=== PATIENT | female | born 1945 | race Caucasian/White ===

== ENCOUNTER 2023-04-30 11:46 | Inpatient (IN) | payer OTHER, SELFPAY ==
[2023-04-30 10:49] VITALS: BP 143/75
[2023-04-30 11:14] VITALS: BMI 32.3
--- NOTE | 2023-04-30 11:14 | ED.GENMED ---
History of Present Illness
General
Chief Complaint: Breathing Problem
Source: patient
Exam Limitations: none
Time Seen by Provider: 04/30/23 10:54
Nursing documentation reviewed up to this point in time: agreed with
Travel History
Have you had any contact with someone who has COVID-19?: No
Do you have any symptoms of coronavirus? Fever > 100 degrees, chills, cough, shortness of breath, sore throat, loss of taste or smell, muscle aches, or headache?: No
History of Present Illness
History of Present Illness:
pt is a 78 y/o F with h/o HTN
coming from cardiology suite after abnormal stress echo where she had exertional dyspnea, ischemic ekg changes and runs of NSVT
pt feels sob with exertion but denies any chest pain currently
she has not had fever, chills, cough, leg swelling, syncope
pt was sent from the cards suite to be admitted for cath today.
these symptoms have been ongoign for a year.
Past History
Past History
ED Past Medical History: HTN
ED Past Surgical History: None
Social History
Tobacco: Non-smoker
Alcohol: None
Drug: None
Personal:
Living: with family
Review of Systems
Review of Systems
Allergies reviewed?: Yes
All Other Systems: Not applicable
Phy Exam
Physical Exam
Physical Exam:
GENERAL: Alert , in no apparent distress
EYE: pupils equal and reactive
NECK: Supple
ENT: o/p clr, mmm.
CARDIAC: Regular rate and rhythm .
LUNGS: Clear breath sounds bilaterally, no acute respiratory distress, no wheezes/rales/rhonchi
ABDOMEN: Soft, without focal tenderness, no r/g, no cvat, normal bowel sounds
NEUROLOGICAL: Alert and oriented, no focal neuro deficits
SKIN: Warm and dry, skin intact.
MUSCULOSKELETAL: No edema, well perfused. neg grant's sign
PSYCH: Normal and appropriate interaction.
Scores
Heart Failure Risk
Heart Failure Risk Score: Not Applicable
Course
Orders/Labs/Results
Orders:
Orders
04/30/23 11:06
Electrocardiogram (*1) Stat
Reason for Study: Other
Other Reason for Exam: chest pain
Cardiac Monitoring- Treatment ONCE
EKG- Treatment ONCE
Complete Blood Count/With Diff Urgent
Comprehensive Metabolic Panel Urgent
PTT Urgent
Prothrombin Time Urgent
04/30/23 11:15
Troponin I Urgent
04/30/23 11:17
CR Chest Portable - 1 View Urgent
Comment:
Reason For Exam: sob
Reason Study Needs to be Portable: Patient Unstable
Vital Signs
Initial and Last Documented VS:
Initial Vital Signs
Temp Pulse Resp BP Pulse Ox
97.6 F 111 16 143/75 94
04/30/23 10:49 04/30/23 10:49 04/30/23 10:49 04/30/23 10:49 04/30/23 10:49
Last Documented Vital Signs
Temp Pulse Resp BP Pulse Ox
97.6 F 111 16 143/75 94
04/30/23 10:49 04/30/23 10:49 04/30/23 10:49 04/30/23 10:49 04/30/23 10:49
MDM/Problems Addressed
Differential Diagnosis Includes:
angina, acs, cad,
MDM/Problems Addressed:
78 y/o F with h/o htn
sent by cards for admission for cardiac cath after failing stress echo this am
sh ehas exertional dyspnea for months but no ches tpain
she denies pain now
i reached out to dr. gutierrez who requested cxr and amdit to his service.
*Critical Care Note
Total Time (30-74mins, 75-104mins- exclusive of procedures): Not Applicable
ED Attending Note
-
Portions of this chart may have been created with voice recognition software.� Occasional wrong word or��sound alike� substitutions may have occurred due to the inherent limitations of voice recognition software.
Discharge Plan
Departure
Patient Disposition: Admit
Date of Disposition: 04/30/23
Time of Disposition: 11:11
Admit to: Telemetry
Admit to doctor: brenda
Presentation/result/management discussed w/ accepting MD/DO: brenda
Patient with high blood pressure during this ER visit?: No
Condition: Fair
Covid-19: Not Applicable
Discharge Problem:
Abnormal stress echo, BARNETT (dyspnea on exertion)
Interventions
Interventions:
*Risk Screen - Suicide Last Done: 04/30/23 10:49
*General Assessment Last Done: 04/30/23 10:49
*Neglect/Abuse Screening Last Done: 04/30/23 10:49
[2023-04-30 11:23] VITALS: BP 161/76
--- NOTE | 2023-04-30 11:27 | HPS.HSE ---
Family Physician
-
Family Physician: Dr. Maco Puga
Chief Complaint
-
Abnormal stress test
History of Present Illness
78-year-old female with hypertension who presented for an elective stress echocardiogram, which was markedly abnormal with 1.0-1.[address] depression in the inferior leads, limiting dyspnea with exertion (only exercised for 4 minutes), and evidence of
stress-induced ischemia in the mid anteroseptal and possibly basal to mid inferoseptal peter. Her oxygen saturation also declined to 86% with exertion. The patient states that she has been experiencing progressive limiting dyspnea on exertion over
the past few months with intermittent episodes of chest pressure. She denies palpitations, syncopal events, or lower extremity swelling.
Medical History
Past Medical History
Past Medical History: Reports HTN
Past Surgical History: Reports Orthopedic (Left hip replacement, remote foot surgery) and Other (Sinus surgery)
Social History
Tobacco: Former Smoker (Quit at age 38)
Alcohol: Occasional
Drug: None
Personal:
Living: Alone
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
Family History
Family History: Not pertinent
Allergies / Home Medications
Allergies reflects when Allergies were last updated in [employer].
Home Medications with original date entered in [employer]
Allergy/Medication List:
Allergy: Ibuprofen.
Home medication list:
-Aspirin 81 mg daily
-Hydrochlorothiazide 25 mg daily
-Calcium 500 mg daily
-Multivitamin daily
-B complex tablet daily
Review of Systems
-
History Source: Patient
A 12 point ROS was completed and negative except as noted: Yes
Respiratory: Reports Other (BARNETT)
Cardiac: Reports Chest Pain
Physical Exam
Vital Signs
Vital Signs
Temp Pulse Resp BP Pulse Ox
97.6 F 91 21 161/76 96
04/30/23 10:49 04/30/23 11:23 04/30/23 11:23 04/30/23 11:23 04/30/23 11:23
Physical Exam
General: No Apparent Distress and Comfortable
HEENT: NormoCephalic
Respiratory: Clear
Cardiac: S1/S2, Regular Rhythm and Murmur (soft 2/6 MILES)
Breast: Deferred by me
GI: Soft and Non Tender
Rectal: Deferred by Provider
Genito-urinary: Deferred by me
Musculoskeletal: No Clubbing, No Cyanosis and No Edema
Skin: Warm and Dry
Neuro: AO x 3
Psych: Calm
Laboratory Results
-
Labs drawn, pending.
Data Reviewed
-
Medical Tests (Nuc Med, Echo, EKG etc): Image Personally Visualized and interpreted (Stress echocardiogram 04/30/2023: EKG positive for ischemia (1.0-1.[address] depression). Brief run of NSVT 3-7 beats. Exercise-limiting BARNETT. New mid
anteroseptal and possible basal to mid inferolateral stress-induced ischemia. High risk study. )
Lab Data: Discussed with Physician (experimental display builder. ER attending.) and Other (Labs ordered, pending)
Old Records: Reviewed (PCP office note on 02/07/2023.)
Impression/Plan
-
IMPRESSION:
Abnormal stress echocardiogram; high risk study. stress echocardiogram, which was markedly abnormal with 1.0-1.[address] depression in the inferior leads, limiting dyspnea with exertion (only exercised for 4 minutes), and evidence of stress-induced
ischemia in the mid anteroseptal and possibly basal to mid inferoseptal peter. Her oxygen saturation also declined to 86% with exertion.
PLAN:
Abnormal stress echocardiogram: The patient's case was discussed with Interventional Cardiology; will undergo cardiac catheterization today.
-Will be admitted to cardiology service; library monitor.
-Patient has been given full-dose aspirin.
-Patient will undergo an echocardiogram this admission.
-Further recommendations based on cardiac catheterization findings.
Hypertension:
-Patient on HCTZ 25 mg daily as outpatient.
[2023-04-30 11:39] LABS: % Basophils 0.8 % (0-2); % Eosinophils 1.4 % (0-6); % Immature Granulocytes 0.3 % (0-0.5); % Lymphocytes 17.2 % (20.5-51.1); % Monocytes 8.9 % (1.7-9.3); % Neutrophils 71.4 % (42.2-75.2); Absolute Basophils 0.1 10^3/uL (0-0.2); Absolute Eosinophils 0.2 10^3/uL (0-0.7); Absolute Lymphocytes 1.8 10^3/uL (1.2-3.4); Absolute Monocytes 0.9 10^3/uL (0.1-0.6); Absolute Neutrophils 7.5 10^3/uL (1.4-6.5); Hematocrit 43.5 % (37.0-47.0); Hemoglobin 14.5 g/dL (12.0-16.0); Mean Corp Hgb Conc. 33.3 g/dL (33.0-37.0); Mean Corpuscular Hgb 30.5 pg (27.0-31.0); Mean Corpuscular Volume 91.6 fL (81.0-99.0); Mean Platelet Volume 10.2 fL (7.4-10.4); Nucleated Red Blood Cells % 0 %; Platelet Count 230 10^3/uL (130-400); Red Blood Cell Count 4.75 10^6/uL (4.20-5.40); Red Cell Dist. Width 12.7 % (11.5-14.5); White Blood Cell Count 10.5 10^3/uL (4.8-10.8)
[2023-04-30 11:42] LABS: INR 0.96
[2023-04-30 11:44] LABS: ALT (SGPT) 19 U/L (0-35); AST (SGOT) 30 U/L (14-36); Albumin 4.1 g/dl (3.5-5.0); Alkaline Phosphatase 112 U/L (38-126); Blood Urea Nitrogen 22 mg/dl (7-17); Calcium 9.4 mg/dl (8.4-10.2); Carbon Dioxide 30 mmol/L (22-30); Chloride 104 mmol/L (98-107); Estimated Creatinine Clearance 53 ml/min; Glucose 116 mg/dl (70-99); Potassium 4.1 mmol/L (3.5-5.1); Sodium 138 mmol/L (135-145); Total Bilirubin 0.7 mg/dl (0.2-1.3); Total Protein 7.9 g/dl (6.3-8.2); eGFR > 60.00
[2023-04-30 11:55] LABS: Troponin I < 0.012 ng/ml
[2023-04-30 12:29] LABS: HDL Cholesterol 61 mg/dl; LDL Cholesterol, Calculated 77 mg/dl; Total Cholesterol 174 mg/dl (50-199); Triglyceride 183 mg/dl (10-149); Very Low Density Lipoprotein 36 mg/dl (0-30)
[2023-04-30 12:49] VITALS: BP 127/65
[2023-04-30] MEDS: NSS 1000 IV (14:25)
--- NOTE | 2023-04-30 15:01 | ITS.CL.CATH ---
Fundraising Sale Representative - Catheterization
Cardiac Catheterization
Procedure Report:
CARDIAC CATHETERIZATION REPORT
Date of Procedure: 04/30/2023
Referring: Checo Miranda MD
Indication: Worsening exertional dyspnea with high risk stress echo
HEMODYNAMIC DATA
AO: 155/73
LV: 155/15
LEFT VENTRICULOGRAPHY: Normal left ventricular wall motion with EF 64%
CORONARY ANGIOGRAPHY
Dominance: Right
Left Main: Normal
LAD: Normal
Circumflex: Normal
RCA: Normal dominant vessel
Closure Device: None-the procedure was performed via the right radial artery. The Daniel's test was normal prior to the procedure.
Radiation (mGy): 400
DAP (cm2.Gy): 32.9
Fluoroscopy time: 4.6 minutes
CONCLUSIONS
1: Systemic hypertension
2: Normal left ventricular function with EF 64%
3. Normal coronary arteries
4. There is a mild abnormality on her ER single view chest x-ray. We will ask for a PA and lateral chest x-ray prior to discharge. If this is abnormal she will need noncontrast chest CTA. Consider PFTs given her significant BARNETT. We will also
ask for a echocardiogram to be done prior to her visit in the office with Korina Garnica
Copy to: Checo Miranda MD, Maco Puga MD
Benjamin Bravo MD, [facility]
--- NOTE | 2023-05-15 10:37 | W.DS.TRANS ---
DC Summary - Scientific Informatics Project Leader
-
Discharge Instructions:
Discharge Diagnosis/Procedures Cardiac cath
Diet Low Sodium
Driving Restrictions No driving for 24 hours
Instructions: Heart Healthy Diet
Cardiac Catheterization (DC)
Wound Care for Arterial Puncture (DC)
Stand-Alone Forms: DC Instructions- Cath/EP Lab
Changes to Home Medications: No
Discharge Medications:
DC Medications w/original date entered in [employer]
aspirin 81 mg tablet,delayed release 81 mg PO DAILY 04/30/23
hydrochlorothiazide 25 mg tablet 25 mg PO DAILY 04/30/23
Home Medication Changes
Pending Results: No
== END 2023-04-30 16:31 | disposition home or self-care (01) | DRG 287 ==
LOC: CATH-IN 11:46
PROVIDERS: Internal Medicine Cardiovascular Disease; Physician Assistant; ADMITTING PHYSICIAN Internal Medicine; EMERGENCY PHYSICIAN Emergency Medicine
PROC: 4A023N7 Measurement of Cardiac Sampling and Pressure, Left Heart, Percutaneous Approach (ICD-10-PCS; 2023-04-30)
PROC: B2151ZZ Fluoroscopy of Left Heart using Low Osmolar Contrast (ICD-10-PCS; 2023-04-30)
PROC: B2111ZZ Fluoroscopy of Multiple Coronary Arteries using Low Osmolar Contrast (ICD-10-PCS; 2023-04-30)
DX: R94.39 Abnormal result of other cardiovascular function study (principal); I47.20 Ventricular tachycardia, unspecified; I10 Essential (primary) hypertension; Z87.891 Personal history of nicotine dependence; R06.09 Other forms of dyspnea
CPT/HCPCS: 93017; 71045; 71046; 80053; 80061; 84484; 85025; 85610; 85730; 93005; 93350; 93458; 99285; C1894; Q9957; Q9967

== ENCOUNTER → 2023-05-11 11:05 | Outpatient (REF) | payer OTHER, SELFPAY | LOC: RCS 11:05 | PROVIDERS: ATTENDING PHYSICIAN Nurse Practitioner; FAMILY PHYSICIAN Internal Medicine | DX: R06.09 Other forms of dyspnea (principal) | CPT/HCPCS: 93306 ==

== ENCOUNTER → 2023-05-24 12:27 | Outpatient (REF) | payer OTHER, SELFPAY | LOC: HWRAD 12:27 | PROVIDERS: ATTENDING PHYSICIAN Internal Medicine Critical Care Medicine; FAMILY PHYSICIAN Internal Medicine | DX: R06.02 Shortness of breath (principal); R93.89 Abnormal findings on diagnostic imaging of other specified body structures | CPT/HCPCS: 71275; Q9967 ==

== ENCOUNTER 2023-05-24 18:11 | Inpatient (IN) | payer OTHER, SELFPAY ==
[2023-05-24 15:18] VITALS: BP 152/79
[2023-05-24 16:37] LABS: % Basophils 0.9 % (0-2); % Eosinophils 2.3 % (0-6); % Immature Granulocytes 0.3 % (0-0.5); % Lymphocytes 20.5 % (20.5-51.1); % Monocytes 9.1 % (1.7-9.3); % Neutrophils 66.9 % (42.2-75.2); Absolute Basophils 0.1 10^3/uL (0-0.2); Absolute Eosinophils 0.3 10^3/uL (0-0.7); Absolute Lymphocytes 2.2 10^3/uL (1.2-3.4); Absolute Neutrophils 7.2 10^3/uL (1.4-6.5); Hematocrit 41.7 % (37.0-47.0); Mean Corp Hgb Conc. 33.6 g/dL (33.0-37.0); Mean Corpuscular Hgb 29.7 pg (27.0-31.0); Mean Corpuscular Volume 88.5 fL (81.0-99.0); Mean Platelet Volume 9.6 fL (7.4-10.4); Nucleated Red Blood Cells % 0 %; Platelet Count 241 10^3/uL (130-400); Red Blood Cell Count 4.71 10^6/uL (4.20-5.40); Red Cell Dist. Width 13.1 % (11.5-14.5); White Blood Cell Count 10.8 10^3/uL (4.8-10.8)
[2023-05-24 16:52] LABS: INR 1.03; PT 13.3 Sec (11.4-14.6)
[2023-05-24 16:53] LABS: ALT (SGPT) 15 U/L (0-35); AST (SGOT) 31 U/L (14-36); Albumin 3.7 g/dl (3.5-5.0); Alkaline Phosphatase 90 U/L (38-126); Blood Urea Nitrogen 17 mg/dl (7-17); Calcium 9.3 mg/dl (8.4-10.2); Carbon Dioxide 29 mmol/L (22-30); Chloride 97 mmol/L (98-107); Estimated Creatinine Clearance 68 ml/min; Glucose 102 mg/dl (70-99); Potassium 4.1 mmol/L (3.5-5.1); Sodium 134 mmol/L (135-145); Total Bilirubin 0.9 mg/dl (0.2-1.3); Total Protein 7.9 g/dl (6.3-8.2); eGFR > 60.00
[2023-05-24 16:53] LABS: APTT 25.3 Sec (23.4-35.0)
[2023-05-24 17:05] LABS: NT-proBNP 1330 pg/ml; Troponin I 0.024 ng/ml
[2023-05-24 17:35] VITALS: BP 143/86
[2023-05-24] MEDS: HEPARIN 25000 UNITS/250 ML IV (17:41)
[2023-05-24] MEDS: HEPARIN 5800 UNITS IV (17:43)
[2023-05-24 18:00] VITALS: BP 154/62
--- NOTE | 2023-05-24 18:00 | HPS.HSE ---
Family Physician
-
Family Physician: Maco Puga
Chief Complaint
-
Sent in by her horse racetrack manager after abnormal CT scan showing pulmonary embolus
History of Present Illness
Patient is an 78-year-old female who has been short of breath dating back to early January at that time she had taken a flight to [facility] to engage in a [employer] cruise after flying from [place] on a 9-hour flight she states she
may have been having some short of breath in the airport but was definitely more short of breath after arrival and trying to keep up with her tour group. Since that time she has been persistently short of breath and underwent a stress echo that was
markedly abnormal due to exercise intolerance and was actually admitted for cardiac catheterization in late April showing normal coronaries a 2D echocardiogram subsequently showed a 65% EF without significant wall motion abnormality or
valvulopathy. It was suggested that she follow-up with pulmonary to assess for possible pulmonary causes to her dyspnea and apparently underwent pulmonary function studies that were unremarkable but Dr. Mansfield on the pulmonary service ordered a
CT scan of the chest which shows a large pulmonary embolus in the right main pulmonary artery with some segmental branching on the right side also. There is no significant strain effect and she has remained hemodynamically stable throughout
evaluation in the ED she will be admitted for heparinization she is not a thrombolytic candidate as she remains hemodynamically stable she is only on 2 L nasal flow oxygen but tested without desaturation on room air earlier. Only prior history is
that of hypertension and she is also on daily aspirin therapy. 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 Describing her exercise intolerance or more
likely intolerance is when asked if she can walk a city block she states she did have to stop 500 times. She cannot climb stairs. She cannot keep up with any people with leisure walking. She does not describe any chest pain or any inspiratory
pain.
Medical History
Past Medical History
Past Medical History: Reports HTN
Past Surgical History: Reports Orthopedic
Additional Past Surgical History:
Left hip replacement/bunionectomy right foot
Social History
Tobacco: Former Smoker
Alcohol: None
Drug: None
Personal:
Living: Alone
Employment: Retired
Family History
Family History: Other (No coagulopathy history in family members)
Allergies / Home Medications
Allergies reflects when Allergies were last updated in [employer].
Home Medications with original date entered in [employer]
Allergy/Medication List:
Allergies
Allergy/AdvReac Type Severity Reaction Status Date / Time
ibuprofen Allergy Shortness Verified 05/24/23 15:23
of Breath
Home Medications
aspirin 81 mg tablet,delayed release 81 mg PO DAILY 04/30/23
hydrochlorothiazide 25 mg tablet 25 mg PO DAILY 04/30/23
calcium carbonate 500 mg calcium (1,250 mg) tablet 500 mg PO DAILY 05/24/23
cholecalciferol (vitamin D3) 25 mcg (1,000 unit) tablet (Vitamin D3) 25 mcg PO DAILY 05/24/23
multivitamin 1 tab PO DAILY 05/24/23
Review of Systems
-
History Source: Patient and Family
Constitutional: Reports No Symptoms
EENT: Reports No Symptoms
Respiratory: Reports See HPI and Trouble Breathing
Abdomen/GI: Reports No Symptoms
: Reports No Symptoms
Skin: Reports No Symptoms
Neurological: Reports No Symptoms
Physical Exam
Vital Signs
Vital Signs
Pulse Resp BP Pulse Ox
84 18 152/79 93
05/24/23 15:18 05/24/23 15:18 05/24/23 15:18 05/24/23 15:18
Physical Exam
General: Well Developed
HEENT: NormoCephalic
Respiratory: Clear
Cardiac: S1/S2 and Regular Rhythm
GI: Soft, Non Tender and Non Distended
Neuro: Awake and AO x 3
Psych: Calm
Laboratory Results
-
05/24/23 16:
05/24/23 16:
Laboratory Results
PT 13.3 Sec (11.4-14.6) 05/24/23 16:
INR 1.03 05/24/23 16:
APTT 25.3 Sec (23.4-35.0) 05/24/23 16:
Total Bilirubin 0.9 mg/dl (0.2-1.3) 05/24/23 16:
AST 31 U/L (14-36) 05/24/23:
ALT 15 U/L (0-35) 05/24/23 16:
Alkaline Phosphatase 90 U/L (38-126) 05/24/23 16:
Troponin I 0.024 ng/ml 05/24/23 16:
Data Reviewed
-
Critical Care Time (in minutes): 56
CT Scan: Report Reviewed by me and Discussed with Physician
Lab Data: Labs Reviewed by me (CBC and chemistry is all within limits of acceptable range)
Impression/Plan
-
IMPRESSION:
Patient is an 78-year-old female who has been short of breath dating back to early January at that time she had taken a flight to [facility] to engage in a [employer] [place] cruise after flying from [place] on a 9-hour flight she states she
may have been having some short of breath in the airport but was definitely more short of breath after arrival and trying to keep up with her tour group. Since that time she has been persistently short of breath and underwent a stress echo that was
markedly abnormal due to exercise intolerance and was actually admitted for cardiac catheterization in late April showing normal coronaries a 2D echocardiogram subsequently showed a 65% EF without significant wall motion abnormality or
valvulopathy. It was suggested that she follow-up with pulmonary to assess for possible pulmonary causes to her dyspnea and apparently underwent pulmonary function studies that were unremarkable but Dr. Mansfield on the pulmonary service ordered a
CT scan of the chest which shows a large pulmonary embolus in the right main pulmonary artery with some segmental branching on the right side also. There is no significant strain effect and she has remained hemodynamically stable throughout
evaluation in the ED she will be admitted for heparinization she is not a thrombolytic candidate as she remains hemodynamically stable she is only on 2 L nasal flow oxygen but tested without desaturation on room air earlier. Only prior history is
that of hypertension and she is also on daily aspirin therapy. 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
Acute pulmonary emboli
-Involving the right main pulmonary artery with moderate thrombotic burden but without evidence right ventricular strain
-Hemodynamically stable on presentation and no indication for thrombolysis
-May have had instigating influence from a long-haul flight in early January has been short of breath since
-Management will be heparin drip with transition to DOAC in 24 to 48 hours
-Venous Doppler lower extremities negative for DVT
-Pulmonary consultation/has been followed by Dr. Arnold
Recent cardiac evaluation
-That included abnormal stress echo leading to left heart cath showing normal coronary arteries
-Recent 2D echocardiogram 2 weeks ago showing EF of 65% without wall motion abnormality nor valvulopathy
-Cath results did show some pulmonary hypertension at that time
Essential hypertension
-Continue management with hydrochlorothiazide stable on presentation
DVT prophylaxis with heparin drip
-Full CODE STATUS
[2023-05-24 19:46] LABS: Troponin I 0.026 ng/ml
[2023-05-24 19:47] VITALS: BP 123/83; BMI 31.2
--- NOTE | 2023-05-24 20:12 | ED.GENMED ---
History of Present Illness
General
Chief Complaint: Breathing Problem
Source: patient
Exam Limitations: none
Time Seen by Provider: 05/24/23 15:25
Nursing documentation reviewed up to this point in time: agreed with
Travel History
Have you had any contact with someone who has COVID-19?: No
Do you have any symptoms of coronavirus? Fever > 100 degrees, chills, cough, shortness of breath, sore throat, loss of taste or smell, muscle aches, or headache?: No
History of Present Illness
History of Present Illness:
78-year-old female with past medical history as documented presents to the emergency room from outpatient CT scan due to positive pulmonary embolism on CTA of the chest. Patient reports that she has been feeling increasing dyspnea over the past 4
to 6 months. She does not recall an abrupt onset or trigger but says it has been gradually worsening. She recently underwent extensive workup including cardiac catheterization with Dr. Bravo and echocardiogram which was nondiagnostic. She was
referred to pulmonology for PFTs and saw Dr. Arnold who ordered outpatient CTA to rule out PE; she had scan today which was positive for pulmonary embolism. She denies any chest pain. She denies any leg pain or swelling. She denies any recent
surgery or hospitalizations and no known history of cancer. She denies any history of DVT/PE. She denies any recent bleeding including nosebleeds, GI bleeding.
Past History
Past History
ED Past Medical History: HTN
ED Past Surgical History: None
Social History
Tobacco: Non-smoker
Alcohol: None
Drug: None
Personal:
Living: with family
Review of Systems
Review of Systems
All Other Systems: ROS reviewed and negative except as documented in HPI and ROS
Constitutional: Reports fatigue; Denies fever
Respiratory: Reports cough (Very mild) and trouble breathing
Cardiac: Denies chest pain, diaphoresis or palpitations
ABD/GI: Denies abdominal pain, nausea, vomiting or diarrhea
: Denies flank pain
Musculoskeletal: Denies edema, neck pain or back pain
Neurological: Denies dizzy, headache, weakness or numbness
Phy Exam
Physical Exam
Physical Exam:
General: Awake, alert, oriented x3; no acute distress
Head: Normocephalic, atraumatic
Eyes: Conjunctiva normal
Throat: Airway intact, handling secretions
Neck: Trachea midline, supple without meningismus
Lungs: Clear to auscultation bilaterally, no wheezing, rales, rhonchi
Heart: Regular rate and rhythm, no murmurs, gallops, or rubs
Neuro: Cranial nerves grossly intact, speech fluid
Skin: no rash
Extremities: No edema in extremities, equal pulses in all extremities
Scores
Heart Failure Risk
Heart Failure Risk Score: Not Applicable
Heart Score for Chest Pain Patients
STEMI patient?: Not applicable
Withdrawal Assessment of Alcohol
Withdrawal Assessment Completed?: Not applicable
Course
Orders/Labs/Results
Orders:
Orders
05/24/23 Dinner
Regular
At Your Request: Full Participation
Does patient need a safe tray?: No
05/24/23 15:26
Electrocardiogram (*1) Urgent
Reason for Study: Shortness of Breath
EKG- Treatment ONCE
05/24/23 16:06
US Periph Venous LOWER Ext Joaquim Urgent
Comment:
Reason For Exam: large PE--eval for DVT
05/24/23 16:27
PTT Urgent
Prothrombin Time Urgent
05/24/23 16:28
Complete Blood Count/With Diff Urgent
Comprehensive Metabolic Panel Urgent
NT-proBNP Urgent
Troponin I Urgent
05/24/23 17:04
Heparin 5,800 units IV NOW STA
Nursing to Place Non Medication Order As Directed
Physician Order: PTT 6 hours after initial start of Heparin infusion
Above order entered?: Yes
05/24/23 17:15
Heparin 80882 Units/250 ml 25,000 units in 250 ml IV PER PROTOCOL
Weight to be used for heparin protocol in kilograms (kg):: 72
Protocol:: DVT/PE
PTT Goal Range to be used:: PTT 73 to 111 seconds
Order type:: Initial
INITIAL Infusion Dose (UNITS/KG/hr) & then follow protocol:: 18 units/kg/hr
Infusion Dose in UNITS/hr & then follow protocol (UNITS/hr):: 1,300
INFUSION RATE in mL/hr & then follow protocol (mL/hr):: 13
For DVT/PE algorithm, re-bolus for low PTT?: Yes
PTT less than or equal to 64 seconds:: Re-bolus 80 units/kg (max 10,000units). Increase by 300 units/hr
(+ 3mL/hr)
PTT 64.1 to 72.9 seconds:: Re-bolus 40 units/kg (max 5,000 units). Increase by 100 units/hr
(+ 1mL/hr)
PTT 73 to 111 seconds:: Target Range. No change in rate.
PTT 111.1 to 130.9 seconds:: Decrease rate by 100 units/hr (- 1 mL/hr)
PTT 131 to 199.9 seconds:: HOLD for 1 hr. Then decrease by 200 units/hr (- 2mL/hr)
PTT greater than or equal to 200 seconds:: HOLD for 2 hrs & Notify Provider. Then decrease by 300 units/hr
(- 3mL/hr)
Lab follow-up:: Each change, PTT q6h until 2 consecutive are therapeutic. Then
PTT daily.
05/24/23 17:18
Heparin 5,800 units IV PRN PRN
05/24/23 17:19
Heparin 2,900 units IV PRN PRN
05/24/23 17:44
Heparin 5,000 units .ROUTE .STK-MED ONE
05/24/23 17:50
Admit/Transfer Patient As Directed
Co-Sign Provider:
Level of Care: Inpatient admission
Assign to:: Telemetry
Physician / Group: hosp
Diagnosis: Pulmonary embolus
Reason for Telemetry: Medication for Arrhythmia
Date to Stop Telemetry: 05/26/23
Time to Stop Telemetry: 11:00
Reason for Hospitalization: Pulmonary embolus
Expected length of stay greater than two midnights?: Yes
ELOS- Estimated Length of Stay in days: 3
I certify the patient meets the requirements for IP care: Yes
05/24/23 17:53
Code Status As Directed
Resuscitation Status: Full Code
Acetaminophen [Tylenol] 650 mg PO Q4HPRN PRN
Venous Foot Pumps As Directed
Location: Bilateral feet
O2 Therapy [RESP] Routine
Nasal Cannula Liter Flow: 2 LPM
Titrate/Wean O2 to maintain O2 sat greater than (%): 93
Pulse Ox/spot Check [RESP] Routine
Quantity: 1
05/24/23 17:54
Activity As Directed
Activity Level: Bedrest for limited time
Bedrest duration in hours then activity as indicated above:: 24
Vital Signs As Directed
Frequency: Per unit guidelines
DX Deep Vein Thrombosis Video Routine
05/24/23 17:59
PULMONARY CONSULT Routine
Consulting Provider: Brandon Arnold
Was physician already notified: Yes
05/24/23 19:10
Troponin I Q6H
05/25/23 00:00
Troponin I Q6H
05/25/23 06:00
Basic Metabolic Panel IN AM
Complete Blood Count/No Diff IN AM
Troponin I Q6H
05/25/23 08:00
Aspirin Low Dose EC [Aspir Low (Enteric Coated)] 81 mg PO DAILY
Calcium Carbonate [Oscal Jakob 500] 500 mg PO DAILY
Cholecalciferol (Vitamin D3) [VITAMIN D3 (cholecalciferol)] 25 mcg PO DAILY
Hydrochlorothiazide [Oretic] 25 mg PO DAILY
05/26/23 11:00
DC Protocol for Telemetry ONCE
Abnormal Lab Results
05/24/23
16:28
Absolute Neuts (auto) 7.2 H 10^3/uL
(1.4-6.5)
Absolute Monos (auto) 1.0 H 10^3/uL
(0.1-0.6)
Sodium 134 L mmol/L
(135-145)
Chloride 97 L mmol/L
(98-107)
Glucose 102 H mg/dl
(70-99)
05/24/23 16:28
05/24/23 16:28
Vital Signs
Initial and Last Documented VS:
Initial Vital Signs
Pulse Resp BP Pulse Ox
84 18 152/79 93
05/24/23 15:18 05/24/23 15:18 05/24/23 15:18 05/24/23 15:18
Last Documented Vital Signs
Temp Pulse Resp BP Pulse Ox
36.2 C 84 22 123/83 95
05/24/23 19:47 05/24/23 19:47 05/24/23 19:47 05/24/23 19:47 05/24/23 19:47
MDM/Problems Addressed
Differential Diagnosis Includes:
PE
MDM/Problems Addressed:
78-year-old female presents with worsening dyspnea over the past few months; had outpatient CTA which showed pulmonary embolism. No clear signs of heart strain on CTA and patient had recent echocardiogram on 05/11 which showed no RV dilation. She
has a low normal pulse ox 93% on room air, normal heart rate, normal blood pressure. Discussed with pulmonology, not a candidate for thrombolysis. Ordered bilateral duplex of the lower extremities, basic labs, EKG. Will start on heparin infusion
admit to the hospitalist service for continued management. Case discussed with hospitalist for admission.
*Radiology
Radiology exam reviewed: radiology read reviewed (Reviewed CTA done outpatient)
*Pulse Oximetry
Patient hypoxic: no
*EKG
Interpreted by ED Provider?: Yes
Heart Rate: 70
Rate: normal
Rhythm: sinus
Gans: normal axis
Interval: normal interval
QRS Pattern: normal QRS
Ischemia: other (Nonspecific T wave abnormalities)
*Critical Care Note
Total Time (30-74mins, 75-104mins- exclusive of procedures): Not Applicable
Data Reviewed
Source: patient and records
Patient Management
Discussion with other providers: Hospitalist (Discussed with hospitalist) and Audio Visual Facilities Engineer (Discussed with pulmonology)
Escalation/DeEscalation of care consider admission/obs:
Admission indicated
ED Attending Note
-
Portions of this chart may have been created with voice recognition software.� Occasional wrong word or��sound alike� substitutions may have occurred due to the inherent limitations of voice recognition software.
Discharge Plan
Departure
Patient Disposition: Admit
Date of Disposition: 05/24/23
Time of Disposition: 17:21
Admit to doctor: Adolfo
Presentation/result/management discussed w/ accepting MD/DO: Hospitalist
Discharge Problem:
Pulmonary embolism
Interventions
Interventions:
*Risk Screen - Suicide Last Done: 05/24/23 19:39
*General Assessment Last Done: 05/24/23 15:18
*Neglect/Abuse Screening Last Done: 05/24/23 19:39
ED- Fall Risk Assessment Last Done: 05/24/23 18:23
*ED COVID-19 Vaccine History Last Done: 05/24/23 15:18
*Nursing Disposition Last Done: 05/24/23 19:39
ED- Cardiac Assessment Last Done: 05/24/23 18:23
ED- Pulmonary Assessment Last Done: 05/24/23 18:23
Discharge Date and Time
Discharge Date/Time: 05/24/23 19:40
[2023-05-24 23:23] VITALS: BP 131/54
[2023-05-25 00:11] LABS: APTT 170.3 Sec (23.4-35.0)
[2023-05-25 01:24] LABS: Troponin I 0.025 ng/ml
[2023-05-25 03:07] VITALS: BP 107/48
[2023-05-25 07:05] VITALS: BP 113/61
--- NOTE | 2023-05-25 07:53 | W.PN.HOSP.TC ---
Today's Communication/Plan
-
As discussed with pulmonary service
Would continue heparin drip for at least another 24 hours and reassess in a.m.
Remains hemodynamically stable
May need home oxygen screen prior to discharge
Monitor CBC and platelets on heparin
Assessment / Plan
Assessment / Plan
Patient is an 78-year-old female who has been short of breath dating back to early January at that time she had taken a flight to [facility] to engage in a [employer] cruise after flying from [place] on a 9-hour flight she states she
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
markedly abnormal due to exercise intolerance and was actually admitted for cardiac catheterization in late April showing normal coronaries a 2D echocardiogram subsequently showed a 65% EF without significant wall motion abnormality or
valvulopathy.� It was suggested that she follow-up with pulmonary to assess for possible pulmonary causes to her dyspnea and apparently underwent pulmonary function studies that were unremarkable but Dr. Mansfield on the pulmonary service ordered a
CT scan of the chest which shows a large pulmonary embolus in the right main pulmonary artery with some segmental branching on the right side also.� There is no significant strain effect and she has remained hemodynamically stable throughout
evaluation in the ED she will be admitted for heparinization she is not a thrombolytic candidate as she remains hemodynamically stable she is only on 2 L nasal flow oxygen but tested without desaturation on room air earlier.� Only prior history is
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
Acute pulmonary emboli
-Involving the right main pulmonary artery with moderate thrombotic burden but without evidence right ventricular strain
-Hemodynamically stable on presentation and no indication for thrombolysis
-May have had instigating influence from a long-haul flight in early January has been short of breath since
-Management will be heparin drip with transition to DOAC in 24 to 48 hours
-Venous Doppler lower extremities negative for DVT
-Pulmonary consultation/has been followed by Dr. Arnold
-Presently on oxygen at 2 L May need home oxygen eval prior to proposed discharge would keep on at least another 24 hours of heparin drip
Recent cardiac evaluation
-That included abnormal stress echo leading to left heart cath showing normal coronary arteries
-Recent 2D echocardiogram 2 weeks ago showing EF of 65% without wall motion abnormality nor valvulopathy
-Cath results did show some pulmonary hypertension at that time
Essential hypertension
-Continue management with hydrochlorothiazide stable on presentation
DVT prophylaxis with heparin drip
-Full CODE STATUS
Anticipated Discharge: Within 24 hours
Subjective/Interval History
-
Date of Service: May 25, 2023
No on 2 L admitted for oxygen overnight denies any acute shortness of breath or chest pain overnight.
Objective Data
-
Labs:
Laboratory Results
05/24/23 05/25/23
23:23 06:59
WBC Pending
Hgb Pending
Hct Pending
Plt Count Pending
APTT 170.3 H* Pending
Sodium Pending
Potassium Pending
Chloride Pending
Carbon Dioxide Pending
BUN Pending
Creatinine Pending
Glucose Pending
Calcium Pending
Vital Signs:
Vital Signs
Temp Pulse Resp BP Pulse Ox
97.8 F 60 18 113/61 97
05/25/23 07:05 05/25/23 07:05 05/25/23 07:05 05/25/23 07:05 05/25/23 07:05
I&O
05/24/23 05/25/23 05/26/23
06:59 06:59 06:59
Intake Total 420 / 420
Balance 420 / 420
Review of Systems
-
History Source: Patient
Constitutional: Reports No Symptoms
EENT: Reports No Symptoms Reported
Respiratory: Reports Trouble Breathing
Physical Exam
-
General: Well Developed
HEENT: Normocephalic
Respiratory: Clear to Auscultation
Cardiac: Regular Rhythm
GI: Soft, Nontender and Nondistended
Musculoskeletal: No Clubbing, No Cyanosis and No Edema
Skin: IV Access / Catheter Site
Neuro: Awake
Psych: Calm
Data Reviewed
-
Total Time Spent with Patient (in minutes): 45
CT Scan: Report Reviewed by me (As reported/with evidence of bilateral PE more on the right side involving the right main pulmonary artery no RV strain)
Labs: Labs Reviewed by me (proBNP of 1330/rest of chemistries and CBC pending)
[2023-05-25 08:25] LABS: Hemoglobin 13.3 g/dL (12.0-16.0); Mean Corp Hgb Conc. 34.1 g/dL (33.0-37.0); Mean Corpuscular Hgb 30.9 pg (27.0-31.0); Mean Corpuscular Volume 90.5 fL (81.0-99.0); Mean Platelet Volume 10.2 fL (7.4-10.4); Platelet Count 236 10^3/uL (130-400); Red Blood Cell Count 4.31 10^6/uL (4.20-5.40); Red Cell Dist. Width 13.2 % (11.5-14.5); White Blood Cell Count 8.5 10^3/uL (4.8-10.8)
[2023-05-25 08:31] LABS: APTT 85.1 Sec (23.4-35.0)
[2023-05-25 08:47] LABS: Troponin I 0.015 ng/ml
[2023-05-25 09:03] LABS: Blood Urea Nitrogen 15 mg/dl (7-17); Calcium 8.9 mg/dl (8.4-10.2); Carbon Dioxide 30 mmol/L (22-30); Chloride 98 mmol/L (98-107); Estimated Creatinine Clearance 59 ml/min; Glucose 79 mg/dl (70-99); Potassium 3.8 mmol/L (3.5-5.1); Sodium 135 mmol/L (135-145); eGFR > 60.00
[2023-05-25] MEDS: VITAMIN D3 (cholecalciferol) 25 MCG PO (09:32)
[2023-05-25] MEDS: ORETIC 25 MG PO (09:32)
[2023-05-25] MEDS: OSCAL CAL 500 500 MG PO (09:32)
[2023-05-25] MEDS: ASPIR LOW (ENTERIC COATED) 81 MG PO (09:32)
[2023-05-25 11:00] VITALS: BP 113/58
--- NOTE | 2023-05-25 13:01 | CM ---
Reviewed the chart notes and spoke with the patient at the bedside. The patient resides alone in a two story [facility] with one step to enter. The only DME in home is a rolling walker if needed. The patient reports no VN or SNF in the past. The
patient confirmed her pharmacy of choice is the [facility] [address] [facility]. CM continues to be available to patient/family and is monitoring medical plan for needs at discharge.
Plan: Discharge to home when medically stable. No needs identified at this time.
[2023-05-25 15:05] VITALS: BP 146/57
--- NOTE | 2023-05-25 15:31 | CON.PUL ---
Consultation
Consultation Request
Date/Time Consultation Requested: 05/25
Date/Time Consultation Performed: 05/25
Reason for Consultation: Multiple PE
Medical History
-
History of Present Illness:
History obtained from the chart, outpatient records and obtained from the patient. Pleasant 78-year-old female whose history dates back to as long as 2 years ago with shortness of breath. She initially thought it was after her
as she was less active. She then had a variety of orthopedic issues. She then traveled to [facility] in January 2023, 11-hour flight. While in [facility] on her cruise she had significantly more shortness of breath. Upon arrival back to [place], she
had a cardiac workup, stress echocardiogram which was abnormal but cardiac workup was negative. She then saw pulmonary and CT chest was obtained which identified multiple pulmonary emboli prompting admission. Throughout this patient denies any
lightheadedness, dizziness, palpitations, syncope, leg pain or leg swelling or calf pain. Upon arrival to [facility],
She was found to have a pulse of 84, breathing 18, blood pressure 152/79, 93% saturation. She is started on heparin therapy
.
PMH: Hypertension, osteopenia, history of hematuria, mild asthma history, sinus surgery, left hip replacement, right foot surgery, peripheral eosinophilia
Past Medical History
Past Medical History: None (See above)
Past Surgical History: None (See above)
Social History
Tobacco: Former Smoker (Less than [id number] history quit )
Alcohol: Occasional
Drug: None
Personal:
Living: Alone
Employment: Not Employed
Family History
Family History: Other (Father at age 46 from malignant hypertension, cousin had ALS.)
Allergies / Home Medications
Allergies
Allergy/AdvReac Type Severity Reaction Status Date / Time
ibuprofen Allergy Shortness Verified 05/24/23 15:23
of Breath
Home Medications
Medication Instructions Recorded Confirmed Last Taken Type
aspirin 81 mg tablet,delayed 81 mg PO DAILY Blood Clot 04/30/23 05/24/23 05/24/23 History
release Prevention/Tx
hydrochlorothiazide 25 mg tablet 25 mg PO DAILY Fluid 04/30/23 05/24/23 05/24/23 History
Retention/Swelling
calcium carbonate 500 mg calcium 500 mg PO DAILY Supplement 05/24/23 05/24/23 05/24/23 History
(1,250 mg) tablet
cholecalciferol (vitamin D3) 25 25 mcg PO DAILY Supplement 05/24/23 05/24/23 05/24/23 History
mcg (1,000 unit) tablet (Vitamin
D3)
multivitamin 1 tab PO DAILY Supplement 05/24/23 05/24/23 05/24/23 History
Review of Systems
-
All other systems: Negative unless noted
Vitals / Labs / Diagnostic Testing
Vital Signs
Temp Pulse Resp BP Pulse Ox
97.7 F 68 20 146/57 98
05/25/23 15:05 05/25/23 15:05 05/25/23 15:05 05/25/23 15:05 05/25/23 15:05
Lab Data
05/25/23 06:59
05/25/23 06:59
Laboratory Results
05/24/23 05/24/23 05/25/23
16:27 23:23 06:59
PT 13.3
INR 1.03
APTT 25.3 170.3 H* 85.1 H
Diagnostic Testing:
Physical Exam
-
HEENT: Normocephalic and Anicteric
Cardiovascular: S1/S2, Regular Rhythm, Murmur (n), Rub (n), Peripheral Edema (n) and Calf Tenderness (n)
Respiratory: Wheeze (n), Rales (n), Rhonchi (n) and Non-Labored Respirations
GI: Soft, Non Distended and Non Tender
Neurology: Awake, Alert, Oriented and No Motor Deficits
Skin: Good Color
General: Comfortable (Observed ambulating in the room without difficulty)
Assessment
-
78-year-old female with subjective dyspnea x 2 years, progressive over the past 5 months, negative cardiac workup, found to be tachycardic during pulm evaluation with elevated inflammatory markers suggesting inflammatory airways disease, sent for CT
chest which identified pulmonary embolism.
Bilateral pulmonary emboli, acute
Large clot burden, mild saddle component per my review
Subjective dyspnea, progressive x 5 months
Recent travel to [place] in January 2024
Upper extremity following cardiac catheterization
Hypertension
Peripheral eosinophilia
Elevated exhaled nitric oxide level
History of asthma
FEV1 55%
NSVT during stress test 04/30/2023
Desaturation lenora 86%
Right middle lobe nodule per my review
Left apical pleural-parenchymal process
Plan/recommendations
At this time, patient appears to be comfortable. I observed her ambulating in the room without difficulty. She has a chronic component as well as a worsening acute component over the past few months
Echocardiogram remarkably is normal as is EKG
She has no presyncopal symptoms
Lower extremity Dopplers negative for DVT
She describes upper extremity swelling following her catheterization 04/30/2023
Moving forward
Given extent of clot burden, would continue with heparin therapy for now
She remains therapeutic
May consider checking upper extremity Dopplers bilaterally although she states swelling has improved
Eventual transition to oral anticoagulation but hold for now
Patient states she is up-to-date with mammogram, Cologuard has been negative
She will need repeat CT imaging in 3 months given right middle lobe nodule
Reviewed with patient at length. Will follow
[2023-05-25] MEDS: HEPARIN 25000 UNITS/250 ML IV (17:00)
[2023-05-25 19:34] VITALS: BP 137/64
[2023-05-25] MEDS: TYLENOL 650 MG PO (22:01)
[2023-05-25 23:12] VITALS: BP 135/65
[2023-05-26 03:11] VITALS: BP 119/78
[2023-05-26 05:24] LABS: Hematocrit 36.4 % (37.0-47.0); Hemoglobin 12.7 g/dL (12.0-16.0); Mean Corp Hgb Conc. 34.9 g/dL (33.0-37.0); Mean Corpuscular Hgb 30.5 pg (27.0-31.0); Mean Corpuscular Volume 87.3 fL (81.0-99.0); Mean Platelet Volume 9.8 fL (7.4-10.4); Platelet Count 238 10^3/uL (130-400); Red Blood Cell Count 4.17 10^6/uL (4.20-5.40); White Blood Cell Count 8.4 10^3/uL (4.8-10.8)
[2023-05-26 05:40] LABS: Blood Urea Nitrogen 18 mg/dl (7-17); Calcium 8.6 mg/dl (8.4-10.2); Carbon Dioxide 31 mmol/L (22-30); Chloride 102 mmol/L (98-107); Estimated Creatinine Clearance 52 ml/min; Glucose 93 mg/dl (70-99); Sodium 135 mmol/L (135-145); eGFR > 60.00
[2023-05-26 05:42] LABS: APTT 86.5 Sec (23.4-35.0)
[2023-05-26 07:16] VITALS: BP 133/59
--- NOTE | 2023-05-26 07:48 | W.PN.HOSP.TC ---
Today's Communication/Plan
-
Would have her come off heparin drip later today and transition to/DOAC
Will probably need home oxygen at this point but will be difficult to arrange oxygen therapy on a Saturday
Would schedule home oxygen screen first thing tomorrow morning
Case management to see in regards to coverage of apixaban
Assessment / Plan
Assessment / Plan
Patient is an 78-year-old female who has been short of breath dating back to early January at that time she had taken a flight to [facility] to engage in a [employer] cruise after flying from [place] on a 9-hour flight she states she
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
markedly abnormal due to exercise intolerance and was actually admitted for cardiac catheterization in late April showing normal coronaries a 2D echocardiogram subsequently showed a 65% EF without significant wall motion abnormality or
valvulopathy.� It was suggested that she follow-up with pulmonary to assess for possible pulmonary causes to her dyspnea and apparently underwent pulmonary function studies that were unremarkable but Dr. Mansfield on the pulmonary service ordered a
CT scan of the chest which shows a large pulmonary embolus in the right main pulmonary artery with some segmental branching on the right side also.� There is no significant strain effect and she has remained hemodynamically stable throughout
evaluation in the ED she will be admitted for heparinization she is not a thrombolytic candidate as she remains hemodynamically stable she is only on 2 L nasal flow oxygen but tested without desaturation on room air earlier.� Only prior history is
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
Acute pulmonary emboli
-Involving the right main pulmonary artery with moderate thrombotic burden but without evidence right ventricular strain
-Hemodynamically stable on presentation and no indication for thrombolysis
-May have had instigating influence from a long-haul flight in early January has been short of breath since
-Management will be heparin drip with transition to DOAC in 24 to 48 hours
-Venous Doppler lower extremities negative for DVT
-Pulmonary consultation/has been followed by Dr. Arnold
-Presently on oxygen at 2 L
May need home oxygen eval prior to proposed discharge would keep on at least another 24 hours of heparin drip
Recent cardiac evaluation
-That included abnormal stress echo leading to left heart cath showing normal coronary arteries
-Recent 2D echocardiogram 2 weeks ago showing EF of 65% without wall motion abnormality nor valvulopathy
-Cath results did show some pulmonary hypertension at that time
Essential hypertension
-Continue management with hydrochlorothiazide stable on presentation
DVT prophylaxis with heparin drip
-Full CODE STATUS
Anticipated Discharge: Within 24 hours
Subjective/Interval History
-
Date of Service: May 26, 2023
Though she is not complaining of chest pain remains on 2 L nasal flow oxygen and states she is not feeling that much better. Answered her questions on heparin
Objective Data
-
Labs:
Laboratory Results
05/26/23
05:05
WBC 8.4
Hgb 12.7
Hct 36.4 L
Plt Count 238
APTT 86.5 H
Sodium 135
Potassium 4.0
Chloride 102
Carbon Dioxide 31 H
BUN 18 H
Creatinine 0.8
Glucose 93
Calcium 8.6
Vital Signs:
Vital Signs
Temp Pulse Resp BP Pulse Ox
97.6 F 69 20 133/59 96
05/26/23 07:16 05/26/23 07:16 05/26/23 07:16 05/26/23 07:16 05/26/23 07:16
I&O
05/25/23 05/26/23 05/27/23
06:59 06:59 06:59
Intake Total 420 / 420 1211 / 1211
Balance 420 / 420 1210 / 1210
Review of Systems
-
History Source: Patient
EENT: Reports No Symptoms Reported
Respiratory: Reports No Symptoms
Abdomen/GI: Reports No Symptoms
Genitourinary: Reports No Symptoms
Physical Exam
-
General: Well Developed
HEENT: Normocephalic
Respiratory: Clear to Auscultation
Cardiac: Regular Rhythm
Musculoskeletal: No Edema
Skin: Warm
Neuro: Awake, Alert, Oriented and AO x 3
Psych: Calm
Data Reviewed
-
Total Time Spent with Patient (in minutes): 56
Labs: Labs Reviewed by me (CBC and platelets stable)
[2023-05-26] MEDS: VITAMIN D3 (cholecalciferol) 25 MCG PO (08:43)
[2023-05-26] MEDS: ORETIC 25 MG PO (08:43)
[2023-05-26] MEDS: ASPIR LOW (ENTERIC COATED) 81 MG PO (08:43)
[2023-05-26] MEDS: OSCAL CAL 500 500 MG PO (08:43)
--- NOTE | 2023-05-26 09:42 | CM ---
Received consult for pricing Eliquis 10mg bid x 1 week; then Eliquis 5mg bid. Eliquis at 10mg bid x 1 week, not covered. Eliquis 5mg bid daily for 60 tabs will cost $19.50 per [employer] wills calculator. CM continues to be available to
patient/family and is monitoring medical plan for needs at discharge.
[2023-05-26 11:53] VITALS: BP 130/59
--- NOTE | 2023-05-26 13:00 | W.PN.PUL3 ---
Today's Communication / Plan
-
Continue heparin therapy throughout the day, transition to oral within the next 24 hours
Assess for home oxygen 05/27
Will require follow-up with pulmonary in 3 months with PFT
Will require follow-up CT chest for right middle lobe nodule
Reviewed limitations, reviewed pathophysiology of thromboembolic disease
Assessment
-
78-year-old female with subjective dyspnea x 2 years, progressive over the past 5 months, negative cardiac workup, found to be tachycardic during pulm evaluation with elevated inflammatory markers suggesting inflammatory airways disease, sent for CT
chest which identified pulmonary embolism.
Bilateral pulmonary emboli, acute
Large clot burden, mild saddle component per my review
Subjective dyspnea, progressive x 5 months
Recent travel to [place] in January 2024
Upper extremity following cardiac catheterization
Hypertension
Peripheral eosinophilia
Elevated exhaled nitric oxide level
History of asthma
FEV1 55%
NSVT during stress test 04/30/2023
Desaturation lenora 86%
Right middle lobe nodule per my review
Left apical pleural-parenchymal process
Plan/recommendations
At this time, patient appears to be comfortable. I observed her ambulating in the room without difficulty. She has a chronic component as well as a worsening acute component over the past few months
Echocardiogram remarkably is normal as is EKG
She has no presyncopal symptoms
Lower extremity Dopplers negative for DVT
She describes upper extremity swelling following her catheterization 04/30/2023
Moving forward
Given extent of clot burden, would continue with heparin therapy for now. This will continue through 05/27 at which time we will consider oral therapy
She remains therapeutic
May consider checking upper extremity Dopplers bilaterally although she states swelling has improved
Assess for home oxygen on 05/27
Reviewed at length pathophysiology of thromboembolic disease.
Suspect patient developed possible thrombosis after her trip to [place] in January
Very astute pickup for possible PE in outpatient setting by Dr. Arnold. This was reviewed with the patient.
Reviewed limitations over the next few weeks
Will require 3 to 6 months of anticoagulation, prefer more towards 6 months given possible chronic component
May eventually require VQ scan down the road given the possibility of chronic component
Patient states she is up-to-date with mammogram, Cologuard has been negative
I reviewed her right middle lobe nodule on imaging
She will need repeat CT imaging in 3 months given right middle lobe nodule
Reviewed with patient at length. All questions answered
Reviewed with primary service
Will follow
Subjective Data
-
Date of Service:
Date of Service: May 26, 2023
Subjective:
Overall, no significant change in symptoms. Ambulating in the room without difficulty. Denies chest pain, lightheadedness, dizziness, palpitations, cough, hemoptysis
Objective Data
Data Reviewed
Vital Signs / I&O / Oxygen:
Vital Signs
Temp Pulse Resp BP Pulse Ox
97.6 F 61 20 130/59 97
05/26/23 11:53 05/26/23 11:53 05/26/23 11:53 05/26/23 11:53 05/26/23 11:53
Intake and Output
05/25/23 05/26/23 05/27/23
06:59 06:59 06:59
Intake Total 420 / 420 1211 / 1211
Balance 420 / 420 1211 / 1211
SaO2 97
Nasal Cannula flow liters per 2
minute
Physical Exam
General: Comfortable
HEENT: Normocephalic and Anicteric
Cardiovascular: S1-S2, Regular Rhythm, Murmur (n), Rub (n), Peripheral Edema (n) and Calf Tenderness (n)
Respiratory: Wheeze (n), Crackles (Few scattered), Rhonchi (n) and Non-Labored Respirations
GI: Soft, Non Distended and Non Tender
Neurology: Awake, Alert and No Motor Deficits
Skin: Cyanosis (n), Jaundice (n) and Rash (n)
Labs/Micro/Reports
Lab Data
05/26/23 05:05
05/26/23 05:05
Laboratory Results
05/25/23 05/26/23
15:16 05:05
APTT 75.0 H 86.5 H
Microbiology
05/25/23 06:18 Nose MRSA Screen - Final
No Methicillin Resistant Staphylococcus aureus isolated.
[2023-05-26 15:05] VITALS: BP 132/65
[2023-05-26] MEDS: HEPARIN 25000 UNITS/250 ML IV (15:25)
--- NOTE | 2023-05-26 15:55 | CM ---
Reviewed the chart notes and spoke with the patient at the bedside. IMM signed and placed on chart. Continues on supplemental O2. CM continues to be available to patient/family and is monitoring medical plan for needs at discharge.
Plan: Discharge plans will depend on the patient's progress. Will need O2 trial to see if patient qualifies for home O2.
[2023-05-26 19:40] VITALS: BP 133/62
[2023-05-26] MEDS: TYLENOL 650 MG PO (21:48)
[2023-05-26 22:57] VITALS: BP 139/64
[2023-05-27 03:09] VITALS: BP 106/43
[2023-05-27 06:12] LABS: APTT 80.2 Sec (23.4-35.0)
[2023-05-27 07:15] VITALS: BP 136/62
[2023-05-27] MEDS: ELIQUIS 10 MG PO ×2 (08:35→18:24)
[2023-05-27] MEDS: ORETIC 25 MG PO (08:35)
[2023-05-27] MEDS: VITAMIN D3 (cholecalciferol) 25 MCG PO (08:35)
[2023-05-27] MEDS: OSCAL CAL 500 500 MG PO (08:35)
[2023-05-27] MEDS: ASPIR LOW (ENTERIC COATED) 81 MG PO (08:35)
--- NOTE | 2023-05-27 10:48 | W.PN.HOSP.TC ---
Addendum entered and electronically signed by Steven Hand MD 05/27/23 18:49:
Pt requested evening dose of eliquis before leaving the hospital. Patient stated she was afraid to leave without evening dose of medication as unsure if medication will be ready on time at pharmacy before closure. Pt understood she was prescribed
extra medication till seen by per primary doctor. Pt understood that starting tomm she will need to take 10mg po bid for additional 12 doses only then 5mg bid thereafter.
More than 30 minutes spent in discharge including
Final examination of the patient
Summarizing hospital stay
Instructions for continuing care to all relevant caregivers
Preparation of discharge records, prescriptions, and referral forms
Total time spent (in minutes): 45
Addendum entered and electronically signed by Steven Hand MD 05/27/23 13:54:
Patient is in need of oxygen on exertion due to pulse oximetry of 92% on room air at rest; 87% on room air with exertion.
Patient was placed on 2L O2 via nasal cannula with saturation of 93%. Oxygen will help to improve hypoxemia.
Patient is mobile within the home. IV heparin therapy has been discussed and use and is ineffective in treating hypoxemia-related symptoms.
Oxygen will improve the patient's symptoms.
Original Note:
Today's Communication/Plan
-
home o2 eval
pulm recs
stop hep
start eliquis
Assessment / Plan
Assessment / Plan
Patient is an 78-year-old female who has been short of breath dating back to early January at that time she had taken a flight to [facility] to engage in a [employer] river cruise after flying from [place] on a 9-hour flight she states she
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
markedly abnormal due to exercise intolerance and was actually admitted for cardiac catheterization in late April showing normal coronaries a 2D echocardiogram subsequently showed a 65% EF without significant wall motion abnormality or
valvulopathy.� It was suggested that she follow-up with pulmonary to assess for possible pulmonary causes to her dyspnea and apparently underwent pulmonary function studies that were unremarkable but Dr. Mansfield on the pulmonary service ordered a
CT scan of the chest which shows a large pulmonary embolus in the right main pulmonary artery with some segmental branching on the right side also.� There is no significant strain effect and she has remained hemodynamically stable throughout
evaluation in the ED she will be admitted for heparinization she is not a thrombolytic candidate as she remains hemodynamically stable she is only on 2 L nasal flow oxygen but tested without desaturation on room air earlier.� Only prior history is
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
Acute pulmonary emboli
-Involving the right main pulmonary artery with moderate thrombotic burden but without evidence right ventricular strain. Per radiologist, 'There is also some peripheral predominance of the right pulmonary artery embolus. I believe that much of the
pulmonary embolism has an acute component, but there may also be a chronic component.'
-Due to hemodynamic stability was not a candidate for thrombolysis on admission
-May have had instigating influence from a long-haul flight in early January has been short of breath since
-Status post heparin drip for greater than 48 hours and transition to Eliquis. Recommend patient discontinue aspirin as patient is taking it on her own accordance.
-Venous Doppler lower extremities negative for DVT
-Presently on oxygen at 2 L
-Troponins were checked and flat/plateau
-Home O2 evaluation today.
-Pulmonary recs
Chronic dyspnea ? Due to pulmonary hypertension
-Status post abnormal stress echo leading to left heart cath showing normal coronary arteries
-Recent 2D echocardiogram 2 weeks ago showing EF of 65% without wall motion abnormality nor valvulopathy
-Cath results did show some pulmonary hypertension at that time
Essential hypertension
-Continue management with hydrochlorothiazide stable on presentation
Patchy groundglass opacity both lungs likely secondary to interstitial versus groundglass pneumonitis
Pulmonary recs
DVT prophylaxis with heparin drip
-Full CODE STATUS
Anticipated Discharge: Today
Subjective/Interval History
-
Date of Service: May 27, 2023
Denies chest pain or palpitations
States of chronic shortness of breath
Remains on 2-3 L oxygen
States of chronic cough
Objective Data
-
Labs:
Laboratory Results
05/27/23
05:41
APTT 80.2 H
Vital Signs:
Vital Signs
Temp Pulse Resp BP Pulse Ox
97.7 F 59 17 136/62 95
05/27/23 07:15 05/27/23 08:35 05/27/23 07:15 05/27/23 08:35 05/27/23 07:15
I&O
05/26/23 05/27/23 05/28/23
06:59 06:59 06:59
Intake Total 1211 / 1211 900 / 900
Balance 1211 / 1211 900 / 900
Physical Exam
-
General: Well Developed and No Apparent Distress
HEENT: Normocephalic, Atraumatic, Moist Mucous Membranes and Oxygen
Respiratory: Clear to Auscultation
Cardiac: Regular Rhythm and S1/S2; Negative Murmur, Rub or Gallop
GI: Soft, Nontender, Nondistended and Normal Bowel Sounds; Negative Organomegaly
Rectal: Deferred by Provider
Musculoskeletal: No Clubbing, No Cyanosis and No Edema
Skin: Negative Rash
Neuro: Alert, Oriented, AO x 3, No Motor Deficits and Nonfocal/Grossly Intact
Psych: Calm
--- NOTE | 2023-05-27 11:14 | W.PN.PUL3 ---
Today's Communication / Plan
-
Transition to oral anticoagulation
Home oxygen assessment
Discharge planning
Sign off
Assessment
-
78-year-old female with subjective dyspnea x 2 years, progressive over the past 5 months, negative cardiac workup, found to be tachycardic during pulm evaluation with elevated inflammatory markers suggesting inflammatory airways disease, sent for CT
chest which identified pulmonary embolism.
Bilateral pulmonary emboli, acute
Large clot burden, mild saddle component per my review
Subjective dyspnea, progressive x 5 months
Recent travel to [place] in January 2024
Upper extremity following cardiac catheterization
Hypertension
Peripheral eosinophilia
Elevated exhaled nitric oxide level
History of asthma
FEV1 55%
NSVT during stress test 04/30/2023
Desaturation lneora 86%
Right middle lobe nodule per my review
Left apical pleural-parenchymal process
Plan/recommendations
Clinically stable overnight.
No difficulties walking to the bathroom or around the room. Denies dizziness.
She has a chronic component as well as a worsening acute component over the past few months
Echocardiogram remarkably is normal as is EKG
Lower extremity Dopplers negative for DVT
She describes upper extremity swelling following her catheterization 04/30/2023
-
Agree with transition to Eliquis today.
Heparin to be discontinued.
Lower extremity Dopplers negative.
Assess for home oxygen on 05/27-pending.
Prior history:
Suspect patient developed possible thrombosis after her trip to [place] in January
Very astute pickup for possible PE in outpatient setting by Dr. Arnold. This was reviewed with the patient.
Reviewed limitations over the next few weeks
Will require 3 to 6 months of anticoagulation, prefer more towards 6 months given possible chronic component
May eventually require VQ scan down the road given the possibility of chronic component
Patient states she is up-to-date with mammogram, Cologuard has been negative
I reviewed her right middle lobe nodule on imaging
She will need repeat CT imaging in 3 months given right middle lobe nodule, patient is aware of this.
Okay with discharge planning from my perspective.
Sign off
Follow-up in our office in about 4 weeks.
Subjective Data
-
Date of Service:
Date of Service: May 27, 2023
Chief Complaint: Pulmonary Follow Up (Acute pulmonary embolism)
Subjective:
No new complaints
On heparin overnight, to be transitioned to oral anticoagulants
Denies lightheadedness or shortness of breath.
Denies chest pain.
Tolerating anticoagulation.
Review of Systems
Cardiopulmonary: Dyspnea (n)
Neuro: Headache (n) and Dizziness (n)
Objective Data
Data Reviewed
Vital Signs / I&O / Oxygen:
Vital Signs
Temp Pulse Resp BP Pulse Ox
97.7 F 59 17 136/62 95
05/27/23 07:15 05/27/23 08:35 05/27/23 07:15 05/27/23 08:35 05/27/23 07:15
Intake and Output
05/26/23 05/27/23 05/28/23
06:59 06:59 06:59
Intake Total 1211 / 1211 900 / 900
Balance 1211 / 1211 900 / 900
SaO2 95
Nasal Cannula flow liters per 2
minute
Physical Exam
General: Comfortable
HEENT: Normocephalic and Anicteric
Cardiovascular: S1-S2, Regular Rhythm, Murmur (n), Rub (n), Peripheral Edema (n) and Calf Tenderness (n)
Respiratory: Wheeze (n), Crackles (Few scattered), Rhonchi (n) and Non-Labored Respirations
GI: Soft, Non Distended and Non Tender
Neurology: Awake, Alert and No Motor Deficits
Skin: Cyanosis (n), Jaundice (n) and Rash (n)
Labs/Micro/Reports
Lab Data
05/26/23 05:05
05/26/23 05:05
Laboratory Results
05/27/23
05:41
APTT 80.2 H
Microbiology
05/25/23 06:18 Nose MRSA Screen - Final
No Methicillin Resistant Staphylococcus aureus isolated.
[2023-05-27 11:26] VITALS: BP 127/67
[2023-05-27 15:35] VITALS: BP 129/63
--- NOTE | 2023-05-27 17:51 | CM ---
Patient has been medically cleared for discharge to home with [facility] and [facility] O2 services. New need for O2 at 2L continuous. Transport tank to be delivered before 6:00 pm this evening. Concentrator delivery to home. Family will transport home.
--- NOTE | 2023-05-27 18:46 | W.DCSUMMARY ---
Discharge Summary
Discharge Data
Date of Admission: 05/24/23
Date of Discharge: 05/27/23
-
Pending Results: No
Hospital Course
78-year-old female past medical history of chronic dyspnea due to pulmonary hypertension suspected, hypertension who is presenting for dyspnea. Patient underwent outpatient CT scan which showed severe pulmonary embolism. CT chest showed Involving
the right main pulmonary artery with moderate thrombotic burden but without evidence right ventricular strain. Per radiologist,�'There is also some peripheral predominance of the right pulmonary artery embolus. I believe that much of the pulmonary
embolism has an acute component, but there may also be a chronic component. Patient was hemodynamically stable and was not a candidate of thrombolysis on admission. Lower EXTR Doppler was negative for DVT. Patient required oxygenation during
hospitalization. Troponins were checked and found to be plateaued and flat. Patient denies any chest pain. Patient had recent cardiac catheterization. Patient was eval by pulmonary. Patient understood. She is to decrease severe aggressive
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 Patient did qualify for home oxygenation of 2 L on discharge.
Discharge Plan
-
Patient Disposition: Home (Routine Discharge)
Discharge Diagnosis/Procedures: Acute hypoxic respiratory insufficiency
Pulmonary embolism
Chronic dyspnea
Pulmonary nodule
Condition: Fair
Diet: As tolerated
Activity: With assistance, As tolerated and No strenuous activity
Driving Restrictions: As prior to admission
Stop these medications:: 81 mg aspirin was discontinued
Activity Restrictions/Additional Instructions:
Take ELiquis 10mg (2 tabs) twice a day for additional 13 doses then 5mg (1tab) twice a day.
Instructions: Pulmonary Embolism (Blood Clot in the Lungs) (DC)
Referrals:
Brandon Arnold MD [Active] -
(3 mo PFT (Change appt from May to July)
CT chest ION in July 2023)
Maco Puga MD [Family Provider] - in less than 1 week
Prescriptions:
New
Eliquis 5 mg tablet
See Rx Instructions .ROUTE .COMPLEX Qty: 72 0RF
Rx Instructions:
Take 10mg (2 tabs) twice a day for additional 13 doses then 5mg (1tab) twice a day
Continued
hydrochlorothiazide 25 mg Tablet
25 mg PO DAILY
multivitamin Tablet
1 tab PO DAILY
calcium carbonate 500 mg calcium (1,250 mg) Tablet
500 mg PO DAILY
cholecalciferol (vitamin D3) [Vitamin D3] 25 mcg (1,000 unit) Tablet
25 mcg PO DAILY
Discontinued
aspirin 81 mg Tablet,Delayed Release (Dr/Ec)
81 mg PO DAILY
Discharge Orders:
Discharge Patient (As Directed); Ordered 05/27/23
Ordered By: Steven Hand
Discharge Date and Time
Discharge Date/Time: 05/27/23 18:29
== END 2023-05-27 18:29 | disposition home or self-care (01) | DRG 176 ==
LOC: 2 NORTH 18:11
PROVIDERS: ADMITTING PHYSICIAN Internal Medicine; ATTENDING PHYSICIAN Hospitalist; CONSULT PHYSICIAN Internal Medicine Critical Care Medicine; EMERGENCY PHYSICIAN Emergency Medicine; FAMILY PHYSICIAN Internal Medicine
DX: I26.99 Other pulmonary embolism without acute cor pulmonale (principal); I47.20 Ventricular tachycardia, unspecified; I10 Essential (primary) hypertension; I27.20 Pulmonary hypertension, unspecified; J84.89 Other specified interstitial pulmonary diseases; Z79.82 Long term (current) use of aspirin; Z87.891 Personal history of nicotine dependence
CPT/HCPCS: 80048; 80053; 83880; 84484; 85025; 85027; 85610; 85730; 87070; 93005; 93970; 96365; 96366; 99285

== ENCOUNTER → 2023-08-22 09:07 | Outpatient (REF) | payer OTHER, SELFPAY | LOC: RAD 09:07 | PROVIDERS: ATTENDING PHYSICIAN Internal Medicine Critical Care Medicine; FAMILY PHYSICIAN Internal Medicine | DX: R91.1 Solitary pulmonary nodule (principal) | CPT/HCPCS: 71250 ==

== ENCOUNTER → 2024-02-28 10:34 | Outpatient (REF) | payer OTHER, SELFPAY | LOC: HWRAD 10:34 | PROVIDERS: ATTENDING PHYSICIAN Internal Medicine Critical Care Medicine; FAMILY PHYSICIAN Internal Medicine | DX: I26.99 Other pulmonary embolism without acute cor pulmonale (principal) | CPT/HCPCS: 71275; Q9967 ==

== ENCOUNTER 2024-07-01 06:16 | Day surgery (SDC) | payer OTHER, SELFPAY ==
[2024-07-01 09:13] VITALS: BMI 33.5
[2024-07-01 09:28] VITALS: BP 155/67
[2024-07-01] MEDS: PRED FORTE 1% EYE DROPS 1 DROP OPHTH (09:28)
[2024-07-01] MEDS: ALCAINE 0.5% EYE DROPS 1 DROP OPHTH (09:28)
[2024-07-01] MEDS: MYDRIACYL 1 DROP OPHTH (09:29)
[2024-07-01] MEDS: NEO-SYNEPHRINE 2.5% OPH SOL. 1 DROP OPHTH (09:29)
[2024-07-01] MEDS: CYCLOGYL 1% EYE DROPS 1 DROP OPHTH (09:29)
[2024-07-01] MEDS: AKTEN OPHTHALMIC GEL 1 ML OPHTH (09:30)
[2024-07-01] MEDS: POLYTRIM OPHTHALMIC SOLUTION 1 DROP OPHTH (09:30)
[2024-07-01] MEDS: NORMOSOL-R/PLASMALYTE-A 1000 IV (09:33)
[2024-07-01 10:40] VITALS: BP 160/82
== END 2024-07-01 11:22 | disposition home or self-care (01) ==
LOC: SDS 06:16
PROVIDERS: ATTENDING PHYSICIAN Ophthalmology
DX: H25.811 Combined forms of age-related cataract, right eye (principal)
CPT/HCPCS: 66984; 87070

== ENCOUNTER 2024-07-15 06:28 | Day surgery (SDC) | payer OTHER, SELFPAY ==
[2024-07-15 09:02] VITALS: BP 163/64
[2024-07-15 09:06] VITALS: BMI 33.2
[2024-07-15] MEDS: ALCAINE 0.5% EYE DROPS 1 DROP OPHTH (09:25)
[2024-07-15] MEDS: PRED FORTE 1% EYE DROPS 1 DROP OPHTH (09:25)
[2024-07-15] MEDS: MYDRIACYL 1 DROP OPHTH (09:26)
[2024-07-15] MEDS: POLYTRIM OPHTHALMIC SOLUTION 1 DROP OPHTH (09:26)
[2024-07-15] MEDS: NEO-SYNEPHRINE 2.5% OPH SOL. 1 DROP OPHTH (09:26)
[2024-07-15] MEDS: AKTEN OPHTHALMIC GEL 1 ML OPHTH (09:27)
[2024-07-15] MEDS: CYCLOGYL 1% EYE DROPS 1 DROP OPHTH (09:27)
[2024-07-15] MEDS: NORMOSOL-R/PLASMALYTE-A 1000 IV (09:27)
[2024-07-15 10:45] VITALS: BP 129/56
== END 2024-07-15 11:15 | disposition home or self-care (01) ==
LOC: SDS 06:28
PROVIDERS: ATTENDING PHYSICIAN Ophthalmology
DX: H25.812 Combined forms of age-related cataract, left eye (principal); H26.9 Unspecified cataract
CPT/HCPCS: 66984

== ENCOUNTER → 2024-10-01 11:47 | Outpatient (REF) | payer OTHER, SELFPAY | LOC: WDC 11:47 | PROVIDERS: ATTENDING PHYSICIAN Internal Medicine | DX: Z12.31 Encounter for screening mammogram for malignant neoplasm of breast (principal) | CPT/HCPCS: 77063; 77067 ==